=== PATIENT | male | born 1975 | race African-American/Black ===

== ENCOUNTER 2022-05-11 21:56 | Emergency (ER) | payer MEDICAID, MEDICARE ==
[~2022-05-11] VITALS: Ht 188 cm; Wt 100.0 kg
[~2022-05-11 21:56] MED LIST: DIVA-80 PO; LURA40TA2 PO; RISP4TAB73 PO
[2022-05-11 21:58] VITALS: BP 131/79
[2022-05-11] MEDS ORDERED: BUPR-290 PO (22:05)
[2022-05-12] MEDS ORDERED: RisperiDONE 1 MG TABLET PO ONE (00:15)
[2022-05-12 00:24] LABS: BASOPHILS % (AUTO) 0.7 % (0.0-2.0); EOSINOPHILS % (AUTO) 2.3 % (1.0-6.0); HEMATOCRIT 34.7 % (41-53); HEMOGLOBIN 11.3 g/dL (13.5-17.5); LYMPHOCYTES # (AUTO) 2.8 K/uL (1.0-4.8); LYMPHOCYTES % (AUTO) 30.8 % (22.0-44.0); MEAN CORPUSCULAR HEMOGLOBIN 24.9 pg (26.0-34.0); MEAN CORPUSCULAR HGB CONC 32.5 G/dL (31.0-37.0); MEAN CORPUSCULAR VOLUME 77 fL (80-100); MONOCYTES # (AUTO) 0.6 K/uL (0.1-1.0); NEUTROPHILS # (AUTO) 5.5 K/uL (1.8-7.7); NEUTROPHILS % (AUTO) 59.2 % (40.0-70.0); PLATELET COUNT (AUTO) 195 K/uL (150-450); RED BLOOD CELL COUNT(AUTO) 4.52 MIL/uL (4.50-5.90); RED CELL DISTRIBUTION WIDTH 13.7 % (11.5-14.5)
[2022-05-12] MEDS ORDERED: LORazepam 2 MG TABLET PO ONE (00:30)
[2022-05-12 00:35] LABS: ANION GAP 3 mmol/L (8-16); CALCIUM, TOTAL 8.8 mg/dL (8.8-10.5); CARBON DIOXIDE 32 mmol/L (22-29); CHLORIDE 103 mmol/L (98-107); CREATININE 1.27 mg/dL (0.60-1.30); GLOMERULAR FILTR. RATE CALC > 60 mL/min (>60); GLUCOSE,RANDOM 118 mg/dL (70-110); POTASSIUM 4.2 mmol/L (3.5-5.1); SODIUM SERUM 138 mmol/L (136-145); UREA NITROGEN, BLOOD 11 mg/dL (7-18)
[2022-05-12 00:41] LABS: ALANINE AMINOTRANSFERASE 25 U/L (12-78); ALBUMIN 3.2 g/dL (3.4-5.0); ALKALINE PHOSPHATASE 46 U/L (46-116); ASPARTATE AMINOTRANSFERASE 22 U/L (15-37); BILIRUBIN,TOTAL 0.3 mg/dL (0.1-1.0); TOTAL PROTEIN, SERUM 6.3 g/dL (6.4-8.2)
[2022-05-12 01:28] LABS: COVID AG,FIA SOURCE NASOPHARYNGEAL
[2022-05-16] MEDS ORDERED: BUPR-49 PO (11:18)
[2022-05-16] MEDS ORDERED: RISP2TAB45 PO (11:18)
== END 2022-05-12 03:05 | disposition home or self-care (01) ==
LOC: EMS 21:58
DX: F25.9 Schizoaffective disorder, unspecified (principal); Z88.8 Allergy status to other drugs, medicaments and biological substances; F17.210 Nicotine dependence, cigarettes, uncomplicated; F12.90 Cannabis use, unspecified, uncomplicated; Z91.018 Allergy to other foods; Z91.011 Allergy to milk products; Z88.6 Allergy status to analgesic agent; Z20.822 Contact with and (suspected) exposure to COVID-19
CPT/HCPCS: 99284; 87426; 80053; 85025; 36415; G0480; 99283

== ENCOUNTER 2022-06-01 08:39 | Emergency (ER) | payer MEDICARE, MEDICAID ==
[~2022-06-01] VITALS: Ht 188 cm; Wt 104.5 kg
[~2022-06-01 08:39] MED LIST changes: +BUPR-49 PO; -DIVA-80 PO; -LURA40TA2 PO; +RISP2TAB45 PO; -RISP4TAB73 PO
[2022-06-01 11:52] LABS: BASOPHILS % (AUTO) 0.3 % (0.0-2.0); EOSINOPHILS % (AUTO) 0.7 % (1.0-6.0); HEMATOCRIT 39.2 % (41-53); HEMOGLOBIN 12.1 g/dL (13.5-17.5); LYMPHOCYTES # (AUTO) 1.2 K/uL (1.0-4.8); LYMPHOCYTES % (AUTO) 14.9 % (22.0-44.0); MEAN CORPUSCULAR HEMOGLOBIN 24.7 pg (26.0-34.0); MEAN CORPUSCULAR HGB CONC 30.8 G/dL (31.0-37.0); MEAN CORPUSCULAR VOLUME 80 fL (80-100); MONOCYTES # (AUTO) 0.6 K/uL (0.1-1.0); NEUTROPHILS # (AUTO) 6.2 K/uL (1.8-7.7); NEUTROPHILS % (AUTO) 77.1 % (40.0-70.0); PLATELET COUNT (AUTO) 196 K/uL (150-450); RED CELL DISTRIBUTION WIDTH 15.1 % (11.5-14.5)
[2022-06-01 11:57] LABS: APPEARANCE,URINE CLEAR (CLEAR); BILIRUBIN,URINE NEGATIVE (NEGATIVE); GLUCOSE, URINE (UA) NEGATIVE (NEGATIVE); KETONES,URINE NEGATIVE (NEGATIVE); LEUKOCYTE ESTERASE ,URINE NEGATIVE (NEGATIVE); NITRATE,URINE NEGATIVE (NEGATIVE); OCCULT BLOOD,URINE NEGATIVE (NEGATIVE); PH,URINE 6.5 (5.0-8.0); PROTEIN,URINE NEGATIVE (NEGATIVE); SPECIFIC GRAVITIY, URINE 1.014 (1.003-1.030); UROBILINOGEN,URINE <=1.0 mg/dL (<=1.0)
[2022-06-01 12:02] LABS: ANION GAP 4 mmol/L (8-16); CARBON DIOXIDE 31 mmol/L (22-29); CHLORIDE 107 mmol/L (98-107); CREATININE 1.13 mg/dL (0.60-1.30); GLUCOSE,RANDOM 105 mg/dL (70-110); POTASSIUM 4.7 mmol/L (3.5-5.1); SODIUM SERUM 142 mmol/L (136-145); UREA NITROGEN, BLOOD 11 mg/dL (7-18)
[2022-06-01 12:03] LABS: GLOMERULAR FILTR. RATE CALC > 60 mL/min (>60)
[2022-06-01 12:07] LABS: PROTHROMBIN TIME 10.9 SEC (9.4-11.6)
[2022-06-01 12:08] LABS: ALANINE AMINOTRANSFERASE 31 U/L (12-78); ALBUMIN 3.9 g/dL (3.4-5.0); ALKALINE PHOSPHATASE 51 U/L (46-116); ASPARTATE AMINOTRANSFERASE 30 U/L (15-37); BILIRUBIN,TOTAL 0.6 mg/dL (0.1-1.0); TOTAL PROTEIN, SERUM 7.4 g/dL (6.4-8.2)
[2022-06-01 13:21] LABS: COVID AG,FIA SOURCE NASAL SWAB
[2022-06-01 14:38] VITALS: BP 148/77
== END 2022-06-01 14:50 | disposition home or self-care (01) ==
LOC: EMS 08:43
DX: R10.30 Lower abdominal pain, unspecified (principal); Z20.822 Contact with and (suspected) exposure to COVID-19; F20.9 Schizophrenia, unspecified; F12.90 Cannabis use, unspecified, uncomplicated; F10.20 Alcohol dependence, uncomplicated; F17.210 Nicotine dependence, cigarettes, uncomplicated
CPT/HCPCS: 80053; 81003; 85025; 85610; 85730; 86850; 86900; 86901; 93005; 99285

== ENCOUNTER 2024-05-08 17:40 | Outpatient (CLI) | payer MEDICARE, OTHER ==
[2024-05-08 18:58] VITALS: BP 127/85; PULSE 87; RESP 18; TEMP 98.3; O2SAT 99
[2024-05-08 21:00] VITALS: BP 129/82; PULSE 77; RESP 18; TEMP 97.6; O2SAT 96
[2024-05-09] MEDS: QUEtiapine FUMARATE 25 MG TABLET PO PRN (00:21)
[2024-05-09] MEDS: DiphenhydrAMINE HCL 25 MG CAPSULE PO PRN (00:21)
[2024-05-09] MEDS: OLANZapine 10 MG TABLET PO SCH (00:21)
[2024-05-09] MEDS ORDERED: OLAN10TA74 PO (00:34)
[2024-05-09] MEDS ORDERED: QUET25TA PO (00:34)
[2024-05-09] MEDS ORDERED: DIPH-1243 PO (00:34)
[2024-05-09] MEDS ORDERED: ARIP10TA38 PO (00:34)
[2024-05-09 07:54] VITALS: BP 139/90; PULSE 83; RESP 20; TEMP 97.7; O2SAT 98
[2024-05-09] MEDS: ARIPiprazole 10 MG TABLET PO SCH (07:58)
== END 2024-05-09 10:15 | disposition home or self-care (01) ==
LOC: CSU 17:40
PROVIDERS: ATTEND Student in an Organized Health Care Education/Training Program
DX: F20.9 Schizophrenia, unspecified (principal); F12.20 Cannabis dependence, uncomplicated
CPT/HCPCS: 90839; 90840; Z7610